=== PATIENT | female | born 1970 | race Caucasian/White ===

== ENCOUNTER 2021-05-05 20:53 | Inpatient (IN) ==
[2021-05-05 22:08] LABS: Basophils # 0.1 K/mcL (0.0-0.2); Basophils % 1.3 %; Eosinophils # 0.9 K/mcL (0.0-0.6); Eosinophils % 11.5 %; Hematocrit 38.9 % (35.3-44.9); Hemoglobin 12.9 g/dL (11.5-15.4); Immature Granulocytes % 0.5 % (0-4); Lymphocytes # 3.2 K/mcL (0.6-4.6); Lymphocytes % 41.3 %; Mean Corpuscular HGB Conc 33.2 g/dL (31.6-35.5); Mean Corpuscular Hemoglobin 29.1 pg (28.0-33.3); Mean Corpuscular Volume 87.6 fL (83.0-100.0); Mean Platelet Volume 10.9 fL (9.4-12.4); Monocytes # 0.5 K/mcL (0.0-1.3); Monocytes % 6.9 %; Neutrophils # 2.9 K/mcL (1.6-8.9); Nucleated Red Blood Cells 0.4 /100 WBC (0); Platelet Count 229 K/mcL (140-400); Red Blood Count 4.44 M/mcL (3.82-4.97); Red Cell Distribution Width 12.7 % (11.5-14.5); Segmented Neutrophils % 38.5 %; White Blood Count 7.6 K/mcL (4.3-11.1)
[2021-05-05 22:28] LABS: Acetaminophen < 10 mcg/mL (10-20); Ethanol < 10 mg/dL (Less than 10); Salicylate < 2.5 mg/dL (15.0-30.0)
[2021-05-05 22:35] LABS: Bilirubin,Urine Negative (Negative); Blood,Urine Negative (Negative); Clarity,Urine Clear (Clear); Color,Urine Light-Yellow (Yellow); Glucose,Urine (UA) Normal (Normal); Ketones,Urine Negative (Negative); Leukocyte Esterase,Urine Negative (Negative); Nitrite,Urine Negative (Negative); Protein,Urine Trace mg/dL (Neg-Trace); Specific Gravity,Urine 1.022 (1.010-1.025); Urobilinogen,Urine Normal (Normal)
[2021-05-05 23:08] LABS: Amphetamine Screen,Urine Negative ng/mL (Cutoff=1000); Barbiturate Screen,Urine Negative ng/mL (Cutoff=200); Benzodiazepines Screen,Urine Negative ng/mL (Cutoff=200); Cannabinoid Screen,Urine Negative ng/mL (Cutoff = 50); Cocaine Screen,Urine Positive ng/mL (Cutoff= 300); Opiate Screen,Urine Negative ng/mL (Cutoff=300); Phencyclidine Screen,Urine Negative ng/mL (Cutoff=25)
[2021-05-05] MEDS: *HR* LORazepam 2 MG/ML VIAL IM PRN (23:10)
[2021-05-05] MEDS: Haloperidol Lactate 5 MG/ML VIAL IM PRN (23:10)
[2021-05-05 23:26] LABS: BUN/Creatinine Ratio 26 (6-26); Blood Urea Nitrogen 19 mg/dL (6-20); Calcium 8.9 mg/dL (8.6-10.3); Carbon Dioxide 27 mEq/L (23-29); Chloride 106 mEq/L (98-107); Glucose 90 mg/dL (70-105); Osmolality,Calculated 290 (280-300); Potassium 3.3 mEq/L (3.5-5.1); Sodium 139 mEq/L (136-145); eGFR For African Americans > 60 (> 60); eGFR For Non-African Americans > 60 (> 60)
[2021-05-06 06:58] LABS: Influenza A PCR Negative (Negative); Influenza B PCR Negative (Negative); Resp. Syncytial Virus PCR Negative (Negative); SARS-CoV-2 by PCR (In House) Negative (Negative)
[2021-05-06] MEDS ORDERED: *HR* LORazepam 2 MG/ML VIAL IM PRN (07:05)
[2021-05-06] MEDS ORDERED: hydrOXYzine pamoate 25 MG CAPSULE PO PRN (07:05)
[2021-05-06] MEDS: amLODIPine 5 MG TABLET PO SCH ×2 (12:29→12:36)
[2021-05-06] MEDS: risperiDONE 1 MG TABLET PO SCH ×2 (12:29→12:36)
[2021-05-06] MEDS ORDERED: Dental Box - Benzocaine 20% SWAB DT ONE (18:33)
[2021-05-06] MEDS: diazePAM 2 MG TABLET PO SCH (20:54)
[2021-05-06] MEDS: Gabapentin 100 MG CAPSULE PO SCH (20:54)
[2021-05-06] MEDS ORDERED: QUEtiapine Fumarate 100 MG TABLET PO SCH (21:00)
[2021-05-07] MEDS: diazePAM 2 MG TABLET PO SCH ×2 (09:01→20:12)
[2021-05-07] MEDS: Gabapentin 100 MG CAPSULE PO SCH ×3 (09:01→20:12)
[2021-05-07] MEDS: amLODIPine 5 MG TABLET PO SCH ×2 (09:01→09:15)
[2021-05-07] MEDS ORDERED: diazePAM 2 MG TABLET PO ONE (15:30)
[2021-05-07] MEDS: Ibuprofen 400 MG TABLET PO PRN (17:03)
[2021-05-07] MEDS ORDERED: QUEtiapine Fumarate 100 MG TABLET PO SCH (21:00)
[2021-05-08] MEDS: Gabapentin 100 MG CAPSULE PO SCH ×3 (08:47→20:14)
[2021-05-08] MEDS: amLODIPine 5 MG TABLET PO SCH (08:48)
[2021-05-08] MEDS: diazePAM 2 MG TABLET PO SCH ×2 (08:48→20:14)
[2021-05-08] MEDS: Ibuprofen 400 MG TABLET PO PRN ×2 (09:08→20:14)
[2021-05-08] MEDS: *HR* LORazepam 1 MG TABLET PO PRN (10:51)
[2021-05-08] MEDS: haloperidoL 5 MG TABLET PO PRN (10:51)
[2021-05-08] MEDS: Multivit/Ca/Min/Fe/FA 1 TAB TABLET PO SCH (14:54)
[2021-05-08] MEDS: QUEtiapine Fumarate 100 MG TABLET PO SCH (14:54)
[2021-05-08] MEDS: MOM Conc 10 ML UD.LIQ PO PRN (20:00)
[2021-05-08] MEDS ORDERED: QUEtiapine Fumarate 300 MG TABLET PO SCH (21:00)
[2021-05-09] MEDS: QUEtiapine Fumarate 25 MG TABLET PO PRN (01:58)
[2021-05-09] MEDS: Ibuprofen 400 MG TABLET PO PRN (01:58)
[2021-05-09] MEDS: Multivit/Ca/Min/Fe/FA 1 TAB TABLET PO SCH (08:58)
[2021-05-09] MEDS: diazePAM 2 MG TABLET PO SCH ×2 (09:00→20:44)
[2021-05-09] MEDS: Gabapentin 100 MG CAPSULE PO SCH ×3 (09:03→20:44)
[2021-05-09] MEDS: amLODIPine 5 MG TABLET PO SCH (09:08)
[2021-05-09] MEDS: QUEtiapine Fumarate 100 MG TABLET PO SCH ×2 (09:09→12:36)
[2021-05-09] MEDS: *HR* LORazepam 2 MG/ML VIAL IM PRN (09:47)
[2021-05-09] MEDS: Haloperidol Lactate 5 MG/ML VIAL IM PRN (09:50)
[2021-05-09] MEDS: *HR* LORazepam 1 MG TABLET PO PRN (15:52)
[2021-05-09] MEDS: MOM Conc 10 ML UD.LIQ PO PRN (20:54)
[2021-05-09] MEDS ORDERED: QUEtiapine Fumarate 100 MG TABLET PO SCH (21:00)
[2021-05-10] MEDS: diazePAM 2 MG TABLET PO SCH ×2 (09:12→20:46)
[2021-05-10] MEDS: amLODIPine 5 MG TABLET PO SCH (09:12)
[2021-05-10] MEDS: QUEtiapine Fumarate 100 MG TABLET PO SCH (09:13)
[2021-05-10] MEDS: haloperidoL 5 MG TABLET PO PRN (09:25)
[2021-05-10] MEDS: *HR* LORazepam 1 MG TABLET PO PRN (09:26)
[2021-05-10] MEDS: Gabapentin 100 MG CAPSULE PO SCH ×3 (09:28→20:47)
[2021-05-10] MEDS: Multivit/Ca/Min/Fe/FA 1 TAB TABLET PO SCH (09:28)
[2021-05-10] MEDS: Haloperidol Lactate 5 MG/ML VIAL IM PRN (12:55)
[2021-05-10] MEDS: *HR* LORazepam 2 MG/ML VIAL IM PRN (12:55)
[2021-05-10] MEDS: Ibuprofen 400 MG TABLET PO PRN (20:47)
[2021-05-10] MEDS: QUEtiapine Fumarate 300 MG TABLET PO SCH (20:47)
[2021-05-11] MEDS: Multivit/Ca/Min/Fe/FA 1 TAB TABLET PO SCH (10:05)
[2021-05-11] MEDS: Gabapentin 100 MG CAPSULE PO SCH ×3 (10:05→20:15)
[2021-05-11] MEDS: QUEtiapine Fumarate 100 MG TABLET PO SCH (10:06)
[2021-05-11] MEDS: amLODIPine 5 MG TABLET PO SCH (10:06)
[2021-05-11] MEDS: diazePAM 2 MG TABLET PO SCH ×2 (10:20→20:15)
[2021-05-11] MEDS: MOM Conc 10 ML UD.LIQ PO PRN (17:03)
[2021-05-11] MEDS: Haloperidol Lactate 5 MG/ML VIAL IM PRN (17:42)
[2021-05-11] MEDS: *HR* LORazepam 2 MG/ML VIAL IM PRN (17:43)
[2021-05-11] MEDS: QUEtiapine Fumarate 300 MG TABLET PO SCH (20:15)
[2021-05-12] MEDS: diazePAM 2 MG TABLET PO SCH ×2 (09:16→21:07)
[2021-05-12] MEDS: Gabapentin 100 MG CAPSULE PO SCH ×3 (09:16→21:07)
[2021-05-12] MEDS: Multivit/Ca/Min/Fe/FA 1 TAB TABLET PO SCH (09:16)
[2021-05-12] MEDS: amLODIPine 5 MG TABLET PO SCH (09:16)
[2021-05-12] MEDS: QUEtiapine Fumarate 100 MG TABLET PO SCH ×2 (09:22→10:12)
[2021-05-12 11:16] LABS: Basophils # 0.1 K/mcL (0.0-0.2); Basophils % 0.9 %; Eosinophils # 0.6 K/mcL (0.0-0.6); Eosinophils % 10.6 %; Hematocrit 38.5 % (35.3-44.9); Hemoglobin 12.8 g/dL (11.5-15.4); Immature Granulocytes % 0.4 % (0-4); Lymphocytes # 1.2 K/mcL (0.6-4.6); Lymphocytes % 22.3 %; Mean Corpuscular HGB Conc 33.2 g/dL (31.6-35.5); Mean Corpuscular Hemoglobin 29.7 pg (28.0-33.3); Mean Corpuscular Volume 89.3 fL (83.0-100.0); Mean Platelet Volume 10.5 fL (9.4-12.4); Monocytes # 0.3 K/mcL (0.0-1.3); Monocytes % 5.7 %; Neutrophils # 3.3 K/mcL (1.6-8.9); Platelet Count 183 K/mcL (140-400); Red Blood Count 4.31 M/mcL (3.82-4.97); Red Cell Distribution Width 12.5 % (11.5-14.5); Segmented Neutrophils % 60.1 %; White Blood Count 5.5 K/mcL (4.3-11.1)
[2021-05-12 11:23] LABS: Estimated Average Glucose 108 mg/dl; Hemoglobin A1C 5.4 %
[2021-05-12 11:37] LABS: Alanine Aminotransferase 51 Units/L (7-52); Albumin 3.9 g/dL (3.5-5.7); Albumin/Globulin Ratio 2.1 (1.1-2.2); Alkaline Phosphatase 58 Units/L (34-104); Aspartate Amino Transferase 38 Units/L (13-39); BUN/Creatinine Ratio 30 (6-26); Bilirubin,Total 0.3 mg/dL (0.3-1.0); Blood Urea Nitrogen 22 mg/dL (6-20); Calcium 8.9 mg/dL (8.6-10.3); Carbon Dioxide 26 mEq/L (23-29); Chloride 106 mEq/L (98-107); Globulin 1.9 g/dL (2.4-3.5); Glucose 124 mg/dL (70-105); Osmolality,Calculated 289 (280-300); Potassium 3.7 mEq/L (3.5-5.1); Sodium 137 mEq/L (136-145); Total Protein 5.8 g/dL (6.4-8.9); eGFR For African Americans > 60 (> 60); eGFR For Non-African Americans > 60 (> 60)
[2021-05-12 11:49] LABS: Thyroid Stimulating Hormone 1.591 mcIU/mL (0.340-5.600)
[2021-05-12] MEDS: Ibuprofen 400 MG TABLET PO PRN (12:59)
[2021-05-12] MEDS: haloperidoL 5 MG TABLET PO PRN (13:07)
[2021-05-12] MEDS: *HR* LORazepam 1 MG TABLET PO PRN (13:07)
[2021-05-12] MEDS: Haloperidol Lactate 5 MG/ML VIAL IM PRN (15:53)
[2021-05-12] MEDS: *HR* LORazepam 2 MG/ML VIAL IM PRN (15:55)
[2021-05-12] MEDS: MOM Conc 10 ML UD.LIQ PO PRN (16:10)
[2021-05-12] MEDS: Divalproex (24 HR) 500 MG TABLET PO SCH ×2 (21:07→22:07)
[2021-05-12] MEDS: QUEtiapine Fumarate 300 MG TABLET PO SCH (21:07)
[2021-05-13] MEDS: Ibuprofen 400 MG TABLET PO PRN (08:45)
[2021-05-13] MEDS: amLODIPine 5 MG TABLET PO SCH (08:46)
[2021-05-13] MEDS: Gabapentin 100 MG CAPSULE PO SCH ×3 (08:46→20:27)
[2021-05-13] MEDS: Multivit/Ca/Min/Fe/FA 1 TAB TABLET PO SCH (08:46)
[2021-05-13] MEDS: diazePAM 2 MG TABLET PO SCH ×2 (08:47→20:27)
[2021-05-13] MEDS: Haloperidol Lactate 5 MG/ML VIAL IM PRN (10:35)
[2021-05-13] MEDS: *HR* LORazepam 2 MG/ML VIAL IM PRN (10:38)
[2021-05-13] MEDS: QUEtiapine Fumarate 100 MG TABLET PO SCH (15:07)
[2021-05-13] MEDS: haloperidoL 5 MG TABLET PO PRN (16:46)
[2021-05-13] MEDS: *HR* LORazepam 1 MG TABLET PO PRN (16:49)
[2021-05-13] MEDS: MOM Conc 10 ML UD.LIQ PO PRN (20:26)
[2021-05-13] MEDS: QUEtiapine Fumarate 300 MG TABLET PO SCH (20:27)
[2021-05-13] MEDS: Divalproex (24 HR) 500 MG TABLET PO SCH (20:31)
[2021-05-14] MEDS: Ibuprofen 400 MG TABLET PO PRN ×2 (07:05→18:50)
[2021-05-14] MEDS: Multivit/Ca/Min/Fe/FA 1 TAB TABLET PO SCH (09:12)
[2021-05-14] MEDS: Gabapentin 100 MG CAPSULE PO SCH ×3 (09:12→20:21)
[2021-05-14] MEDS: amLODIPine 5 MG TABLET PO SCH (09:12)
[2021-05-14] MEDS: diazePAM 2 MG TABLET PO SCH ×2 (09:13→16:32)
[2021-05-14] MEDS: QUEtiapine Fumarate 100 MG TABLET PO SCH ×2 (09:18→12:36)
[2021-05-14] MEDS: Divalproex (24 HR) 500 MG TABLET PO SCH (20:21)
[2021-05-14] MEDS: QUEtiapine Fumarate 300 MG TABLET PO SCH (20:21)
[2021-05-14] MEDS ORDERED: Nicotine 7 MG PATCH.TD24 TD SCH (20:30)
[2021-05-14] MEDS: Nicotine 2 MG GUM BC PRN (20:38)
[2021-05-15] MEDS: QUEtiapine Fumarate 100 MG TABLET PO SCH ×2 (08:54→10:00)
[2021-05-15] MEDS: Gabapentin 100 MG CAPSULE PO SCH ×3 (08:55→21:58)
[2021-05-15] MEDS: Multivit/Ca/Min/Fe/FA 1 TAB TABLET PO SCH (08:55)
[2021-05-15] MEDS: diazePAM 2 MG TABLET PO SCH ×2 (08:56→14:42)
[2021-05-15] MEDS: Nicotine 14 MG PATCH.TD24 TD SCH ×2 (08:57→09:26)
[2021-05-15] MEDS: Nicotine 2 MG GUM BC PRN ×2 (09:24→22:26)
[2021-05-15] MEDS: haloperidoL 5 MG TABLET PO PRN (13:31)
[2021-05-15] MEDS: *HR* LORazepam 1 MG TABLET PO PRN ×2 (13:31→19:40)
[2021-05-15] MEDS: MOM Conc 10 ML UD.LIQ PO PRN (17:44)
[2021-05-15] MEDS: Ibuprofen 400 MG TABLET PO PRN (17:44)
[2021-05-15] MEDS: QUEtiapine Fumarate 300 MG TABLET PO SCH (22:00)
[2021-05-15] MEDS: Divalproex (24 HR) 500 MG TABLET PO SCH (22:03)
[2021-05-16] MEDS: Ibuprofen 400 MG TABLET PO PRN (05:48)
[2021-05-16] MEDS: QUEtiapine Fumarate 100 MG TABLET PO SCH ×3 (08:47→14:07)
[2021-05-16] MEDS: Multivit/Ca/Min/Fe/FA 1 TAB TABLET PO SCH (08:49)
[2021-05-16] MEDS: Gabapentin 100 MG CAPSULE PO SCH ×3 (08:49→21:57)
[2021-05-16] MEDS: diazePAM 2 MG TABLET PO SCH ×2 (08:50→14:08)
[2021-05-16] MEDS: Nicotine 2 MG GUM BC PRN (08:50)
[2021-05-16] MEDS: Nicotine 14 MG PATCH.TD24 TD SCH (09:21)
[2021-05-16] MEDS: Haloperidol Lactate 5 MG/ML VIAL IM PRN (11:46)
[2021-05-16] MEDS: *HR* LORazepam 2 MG/ML VIAL IM PRN (11:47)
[2021-05-16] MEDS ORDERED: ChlorproMAZINE 25 MG/ML AMPUL IM PRN (14:04)
[2021-05-16] MEDS: MOM Conc 10 ML UD.LIQ PO PRN (17:54)
[2021-05-16] MEDS: QUEtiapine Fumarate 300 MG TABLET PO SCH ×2 (21:57→22:55)
[2021-05-16] MEDS: Divalproex (24 HR) 500 MG TABLET PO SCH ×2 (21:57→22:51)
[2021-05-17] MEDS: diazePAM 2 MG TABLET PO SCH ×2 (09:01→14:33)
[2021-05-17] MEDS: Multivit/Ca/Min/Fe/FA 1 TAB TABLET PO SCH (09:02)
[2021-05-17] MEDS: Gabapentin 100 MG CAPSULE PO SCH ×3 (09:02→19:45)
[2021-05-17] MEDS: Nicotine 14 MG PATCH.TD24 TD SCH (09:04)
[2021-05-17] MEDS: QUEtiapine Fumarate 100 MG TABLET PO SCH ×2 (09:04→14:32)
[2021-05-17] MEDS: Mag Hydrox/Al Hydrox/Simeth 30 ML UDC PO PRN (09:32)
[2021-05-17] MEDS ORDERED: QUEtiapine Fumarate 100 MG TABLET PO SCH (14:00)
[2021-05-17] MEDS: Ibuprofen 400 MG TABLET PO PRN (14:43)
[2021-05-17] MEDS: MOM Conc 10 ML UD.LIQ PO PRN (15:43)
[2021-05-17] MEDS: chlorproMAZINE 25 MG TABLET PO PRN (19:45)
[2021-05-17] MEDS: QUEtiapine Fumarate 300 MG TABLET PO SCH (19:45)
[2021-05-17] MEDS: Divalproex (24 HR) 500 MG TABLET PO SCH (21:03)
[2021-05-18] MEDS: diazePAM 2 MG TABLET PO SCH (08:06)
[2021-05-18] MEDS: Gabapentin 100 MG CAPSULE PO SCH ×3 (08:07→20:15)
[2021-05-18] MEDS: Multivit/Ca/Min/Fe/FA 1 TAB TABLET PO SCH (08:07)
[2021-05-18] MEDS: QUEtiapine Fumarate 100 MG TABLET PO SCH ×2 (08:10→08:49)
[2021-05-18] MEDS: Nicotine 14 MG PATCH.TD24 TD SCH (08:11)
[2021-05-18] MEDS: Mag Hydrox/Al Hydrox/Simeth 30 ML UDC PO PRN (08:24)
[2021-05-18] MEDS ORDERED: ChlorproMAZINE 25 MG/ML AMPUL IM PRN (10:35)
[2021-05-18] MEDS: chlorproMAZINE 25 MG TABLET PO PRN (13:36)
[2021-05-18] MEDS: Ibuprofen 400 MG TABLET PO PRN (13:38)
[2021-05-18] MEDS: clonazePAM 1 MG TABLET PO SCH (15:10)
[2021-05-18] MEDS: *HR* LORazepam 2 MG/ML VIAL IM PRN (18:22)
[2021-05-18] MEDS: ChlorproMAZINE 25 MG/ML AMPUL IM PRN (18:25)
[2021-05-18] MEDS: Divalproex (24 HR) 500 MG TABLET PO SCH (20:15)
[2021-05-18] MEDS: QUEtiapine Fumarate 300 MG TABLET PO SCH (20:15)
[2021-05-19] MEDS: Mag Hydrox/Al Hydrox/Simeth 30 ML UDC PO PRN (07:52)
[2021-05-19] MEDS: clonazePAM 1 MG TABLET PO SCH ×2 (08:27→14:21)
[2021-05-19] MEDS: Multivit/Ca/Min/Fe/FA 1 TAB TABLET PO SCH (08:28)
[2021-05-19] MEDS: Nicotine 14 MG PATCH.TD24 TD SCH (08:29)
[2021-05-19] MEDS: Gabapentin 100 MG CAPSULE PO SCH ×3 (08:29→21:23)
[2021-05-19] MEDS: QUEtiapine Fumarate 100 MG TABLET PO SCH (08:39)
[2021-05-19] MEDS: Ibuprofen 400 MG TABLET PO PRN (18:04)
[2021-05-19] MEDS: Divalproex (24 HR) 500 MG TABLET PO SCH (21:24)
[2021-05-19] MEDS: QUEtiapine Fumarate 300 MG TABLET PO SCH (22:11)
[2021-05-19] MEDS: MOM Conc 10 ML UD.LIQ PO PRN (22:38)
[2021-05-19] MEDS: QUEtiapine Fumarate 25 MG TABLET PO PRN (23:17)
[2021-05-20] MEDS ORDERED: Paliperidone Palmitate 234 MG/1.5 ML SYRINGE IM ONE (08:30)
[2021-05-20] MEDS: Ibuprofen 400 MG TABLET PO PRN ×2 (09:12→20:21)
[2021-05-20] MEDS: clonazePAM 1 MG TABLET PO SCH ×2 (09:13→14:08)
[2021-05-20] MEDS: Gabapentin 100 MG CAPSULE PO SCH (09:14)
[2021-05-20] MEDS: Nicotine 14 MG PATCH.TD24 TD SCH (09:16)
[2021-05-20] MEDS: Multivit/Ca/Min/Fe/FA 1 TAB TABLET PO SCH (09:18)
[2021-05-20] MEDS: QUEtiapine Fumarate 100 MG TABLET PO SCH ×3 (09:19→14:49)
[2021-05-20] MEDS: MOM Conc 10 ML UD.LIQ PO PRN (09:20)
[2021-05-20] MEDS: Gabapentin 300 MG CAPSULE PO SCH ×2 (14:07→20:21)
[2021-05-20] MEDS: ChlorproMAZINE 25 MG/ML AMPUL IM PRN (17:54)
[2021-05-20] MEDS: *HR* LORazepam 2 MG/ML VIAL IM PRN (17:54)
[2021-05-20] MEDS: QUEtiapine Fumarate 300 MG TABLET PO SCH (20:21)
[2021-05-20] MEDS: Divalproex (24 HR) 500 MG TABLET PO SCH (20:32)
[2021-05-21] MEDS: Nicotine 14 MG PATCH.TD24 TD SCH (09:48)
[2021-05-21] MEDS: Gabapentin 300 MG CAPSULE PO SCH ×3 (09:51→21:08)
[2021-05-21] MEDS: Multivit/Ca/Min/Fe/FA 1 TAB TABLET PO SCH (09:52)
[2021-05-21] MEDS: clonazePAM 1 MG TABLET PO SCH ×2 (09:52→14:31)
[2021-05-21] MEDS: MOM Conc 10 ML UD.LIQ PO PRN (09:56)
[2021-05-21] MEDS: Ibuprofen 400 MG TABLET PO PRN (09:56)
[2021-05-21] MEDS ORDERED: polyethylene glycoL 3350 17 GM POWD.PACK PO PRN (10:24)
[2021-05-21] MEDS: QUEtiapine Fumarate 100 MG TABLET PO SCH (14:31)
[2021-05-21] MEDS: QUEtiapine Fumarate 300 MG TABLET PO SCH (21:08)
[2021-05-21] MEDS: Divalproex (24 HR) 500 MG TABLET PO SCH (21:12)
[2021-05-22] MEDS: Ibuprofen 400 MG TABLET PO PRN ×2 (06:35→15:00)
[2021-05-22] MEDS: Nicotine 14 MG PATCH.TD24 TD SCH (08:18)
[2021-05-22] MEDS: clonazePAM 1 MG TABLET PO SCH ×2 (08:19→14:57)
[2021-05-22] MEDS: Gabapentin 300 MG CAPSULE PO SCH ×3 (08:19→20:45)
[2021-05-22] MEDS: Multivit/Ca/Min/Fe/FA 1 TAB TABLET PO SCH (08:19)
[2021-05-22] MEDS: MOM Conc 10 ML UD.LIQ PO PRN (09:47)
[2021-05-22] MEDS: OXcarbazepine 150 MG TABLET PO SCH ×2 (11:06→20:45)
[2021-05-22] MEDS: QUEtiapine Fumarate 100 MG TABLET PO SCH (13:20)
[2021-05-22] MEDS ORDERED: *HR* LORazepam 2 MG/ML VIAL IM ONE (16:14)
[2021-05-22] MEDS: ChlorproMAZINE 25 MG/ML AMPUL IM PRN (16:36)
[2021-05-22] MEDS: QUEtiapine Fumarate 300 MG TABLET PO SCH (20:45)
[2021-05-23] MEDS: clonazePAM 1 MG TABLET PO SCH ×2 (08:33→14:41)
[2021-05-23] MEDS: Gabapentin 300 MG CAPSULE PO SCH ×3 (08:33→20:15)
[2021-05-23] MEDS: OXcarbazepine 150 MG TABLET PO SCH ×2 (08:34→20:25)
[2021-05-23] MEDS: Multivit/Ca/Min/Fe/FA 1 TAB TABLET PO SCH (08:34)
[2021-05-23] MEDS: Nicotine 14 MG PATCH.TD24 TD SCH (08:35)
[2021-05-23] MEDS: QUEtiapine Fumarate 100 MG TABLET PO SCH ×2 (14:40→15:07)
[2021-05-23] MEDS: *HR* LORazepam 2 MG/ML VIAL IM PRN (15:03)
[2021-05-23] MEDS: ChlorproMAZINE 25 MG/ML AMPUL IM PRN ×2 (15:03→20:40)
[2021-05-23] MEDS: Sennosides 8.6 MG TABLET PO SCH ×2 (16:28→20:14)
[2021-05-23 17:54] LABS: Alanine Aminotransferase 76 Units/L (7-52); Albumin 4.1 g/dL (3.5-5.7); Albumin/Globulin Ratio 2.2 (1.1-2.2); Alkaline Phosphatase 68 Units/L (34-104); Aspartate Amino Transferase 60 Units/L (13-39); BUN/Creatinine Ratio 25 (6-26); Bilirubin,Direct 0.1 mg/dL (0.0-0.2); Bilirubin,Indirect 0.1 mg/dL (0.0-1.0); Bilirubin,Total 0.2 mg/dL (0.3-1.0); Blood Urea Nitrogen 19 mg/dL (6-20); Carbon Dioxide 21 mEq/L (23-29); Chloride 103 mEq/L (98-107); Globulin 1.9 g/dL (2.4-3.5); Glucose 105 mg/dL (70-105); Osmolality,Calculated 285 (280-300); Sodium 136 mEq/L (136-145); eGFR For African Americans > 60 (> 60); eGFR For Non-African Americans > 60 (> 60)
[2021-05-23] MEDS: Ibuprofen 400 MG TABLET PO PRN (20:59)
[2021-05-23] MEDS: QUEtiapine Fumarate 300 MG TABLET PO SCH (21:00)
[2021-05-24] MEDS ORDERED: Lactulose Oral Soln 20 GM/30 ML UDC PO ONE (07:31)
[2021-05-24] MEDS: Nicotine 14 MG PATCH.TD24 TD SCH (08:00)
[2021-05-24] MEDS: polyethylene glycoL 3350 17 GM POWD.PACK PO SCH (08:01)
[2021-05-24] MEDS: Gabapentin 300 MG CAPSULE PO SCH ×3 (08:01→21:08)
[2021-05-24] MEDS: OXcarbazepine 150 MG TABLET PO SCH ×2 (08:01→21:08)
[2021-05-24] MEDS: Multivit/Ca/Min/Fe/FA 1 TAB TABLET PO SCH (08:02)
[2021-05-24] MEDS: Sennosides 8.6 MG TABLET PO SCH ×2 (08:02→21:08)
[2021-05-24] MEDS: Ibuprofen 400 MG TABLET PO PRN (08:11)
[2021-05-24] MEDS ORDERED: clonazePAM 0.5 MG TABLET PO SCH (09:00)
[2021-05-24] MEDS ORDERED: Paliperidone Palmitate 156 MG/ML SYRINGE IM SCH (10:15)
[2021-05-24] MEDS ORDERED: clonazePAM 0.5 MG TABLET PO ONE (13:05)
[2021-05-24] MEDS: QUEtiapine Fumarate 100 MG TABLET PO SCH (13:43)
[2021-05-24] MEDS: clonazePAM 1 MG TABLET PO SCH (15:20)
[2021-05-24] MEDS: QUEtiapine Fumarate 300 MG TABLET PO SCH (21:08)
[2021-05-24] MEDS: QUEtiapine Fumarate 25 MG TABLET PO PRN (22:15)
[2021-05-24] MEDS: chlorproMAZINE 25 MG TABLET PO PRN (23:18)
[2021-05-25] MEDS: Ibuprofen 400 MG TABLET PO PRN ×2 (05:37→18:06)
[2021-05-25] MEDS: OXcarbazepine 150 MG TABLET PO SCH ×2 (09:49→20:05)
[2021-05-25] MEDS: Gabapentin 300 MG CAPSULE PO SCH ×3 (09:50→20:06)
[2021-05-25] MEDS: clonazePAM 1 MG TABLET PO SCH ×2 (09:50→14:33)
[2021-05-25] MEDS: Multivit/Ca/Min/Fe/FA 1 TAB TABLET PO SCH (09:51)
[2021-05-25] MEDS: Nicotine 14 MG PATCH.TD24 TD SCH (09:51)
[2021-05-25] MEDS: polyethylene glycoL 3350 17 GM POWD.PACK PO SCH (09:51)
[2021-05-25] MEDS: chlorproMAZINE 25 MG TABLET PO PRN (12:37)
[2021-05-25] MEDS: Mag Hydrox/Al Hydrox/Simeth 30 ML UDC PO PRN (14:32)
[2021-05-25] MEDS: QUEtiapine Fumarate 100 MG TABLET PO SCH (14:32)
[2021-05-25] MEDS: ChlorproMAZINE 25 MG/ML AMPUL IM PRN (14:44)
[2021-05-25] MEDS: QUEtiapine Fumarate 300 MG TABLET PO SCH (20:05)
[2021-05-26] MEDS: Ibuprofen 400 MG TABLET PO PRN ×2 (04:26→13:33)
[2021-05-26] MEDS: OXcarbazepine 150 MG TABLET PO SCH ×2 (08:27→20:46)
[2021-05-26] MEDS: Gabapentin 300 MG CAPSULE PO SCH ×3 (08:28→20:45)
[2021-05-26] MEDS: Nicotine 14 MG PATCH.TD24 TD SCH (08:28)
[2021-05-26] MEDS: clonazePAM 1 MG TABLET PO SCH ×2 (08:28→15:57)
[2021-05-26] MEDS: Multivit/Ca/Min/Fe/FA 1 TAB TABLET PO SCH (08:28)
[2021-05-26] MEDS: polyethylene glycoL 3350 17 GM POWD.PACK PO SCH (08:29)
[2021-05-26] MEDS ORDERED: Morphine Sulfate Oral CONC 10 MG/0.5 ML ORAL.SYG SL ONE (13:27)
[2021-05-26] MEDS: QUEtiapine Fumarate 100 MG TABLET PO SCH (13:30)
[2021-05-26] MEDS: Sennosides/Docusate Sodium TABLET PO SCH ×2 (13:30→20:45)
[2021-05-26] MEDS: Lactulose Oral Soln 20 GM/30 ML UDC PO SCH ×2 (14:39→20:46)
[2021-05-26] MEDS: QUEtiapine Fumarate 300 MG TABLET PO SCH (20:45)
[2021-05-26] MEDS: amLODIPine 5 MG TABLET PO SCH (21:23)
[2021-05-27] MEDS: polyethylene glycoL 3350 17 GM POWD.PACK PO SCH (08:04)
[2021-05-27] MEDS: Nicotine 14 MG PATCH.TD24 TD SCH (08:04)
[2021-05-27] MEDS: Lactulose Oral Soln 20 GM/30 ML UDC PO SCH ×2 (08:04→20:00)
[2021-05-27] MEDS: Sennosides/Docusate Sodium TABLET PO SCH ×2 (08:05→20:00)
[2021-05-27] MEDS: OXcarbazepine 150 MG TABLET PO SCH ×4 (08:05→20:00)
[2021-05-27] MEDS: Metoprolol XL (24 HR) Succ 25 MG TAB.ER.24H PO SCH (08:05)
[2021-05-27] MEDS: Multivit/Ca/Min/Fe/FA 1 TAB TABLET PO SCH (08:06)
[2021-05-27] MEDS: clonazePAM 1 MG TABLET PO SCH ×2 (08:19→14:33)
[2021-05-27] MEDS: Gabapentin 300 MG CAPSULE PO SCH ×3 (08:20→20:00)
[2021-05-27] MEDS: Ibuprofen 400 MG TABLET PO PRN ×2 (11:48→20:01)
[2021-05-27] MEDS: hydrOXYzine pamoate 25 MG CAPSULE PO PRN ×2 (12:01→19:59)
[2021-05-27 12:25] LABS: Basophils % 0.6 %; Eosinophils # 0.5 K/mcL (0.0-0.6); Eosinophils % 9.1 %; Hematocrit 37.4 % (35.3-44.9); Hemoglobin 12.4 g/dL (11.5-15.4); Immature Granulocytes % 0.4 % (0-4); Lymphocytes # 1.2 K/mcL (0.6-4.6); Mean Corpuscular HGB Conc 33.2 g/dL (31.6-35.5); Mean Corpuscular Hemoglobin 29.5 pg (28.0-33.3); Mean Platelet Volume 10.5 fL (9.4-12.4); Monocytes # 0.5 K/mcL (0.0-1.3); Monocytes % 9.9 %; Neutrophils # 3.1 K/mcL (1.6-8.9); Platelet Count 204 K/mcL (140-400); Red Cell Distribution Width 12.9 % (11.5-14.5); White Blood Count 5.4 K/mcL (4.3-11.1)
[2021-05-27 12:43] LABS: BUN/Creatinine Ratio 15 (6-26); Blood Urea Nitrogen 11 mg/dL (6-20); Carbon Dioxide 27 mEq/L (23-29); Chloride 98 mEq/L (98-107); Glucose 84 mg/dL (70-105); Magnesium 1.8 mg/dL (1.6-2.6); Osmolality,Calculated 273 (280-300); Potassium 3.9 mEq/L (3.5-5.1); Sodium 132 mEq/L (136-145); eGFR For African Americans > 60 (> 60); eGFR For Non-African Americans > 60 (> 60)
[2021-05-27] MEDS: ChlorproMAZINE 25 MG/ML AMPUL IM PRN (12:48)
[2021-05-27] MEDS: QUEtiapine Fumarate 300 MG TABLET PO SCH ×2 (15:58→21:20)
[2021-05-27] MEDS: amLODIPine 5 MG TABLET PO SCH (21:46)
[2021-05-28] MEDS: Ibuprofen 400 MG TABLET PO PRN ×3 (03:31→21:58)
[2021-05-28] MEDS: ChlorproMAZINE 25 MG/ML AMPUL IM PRN ×2 (03:55→14:06)
[2021-05-28] MEDS: polyethylene glycoL 3350 17 GM POWD.PACK PO SCH (08:39)
[2021-05-28] MEDS: Lactulose Oral Soln 20 GM/30 ML UDC PO SCH ×3 (08:40→22:41)
[2021-05-28] MEDS: Nicotine 14 MG PATCH.TD24 TD SCH (08:40)
[2021-05-28] MEDS: Sennosides/Docusate Sodium TABLET PO SCH ×2 (08:40→21:40)
[2021-05-28] MEDS: Multivit/Ca/Min/Fe/FA 1 TAB TABLET PO SCH (08:40)
[2021-05-28] MEDS: Metoprolol XL (24 HR) Succ 25 MG TAB.ER.24H PO SCH (08:41)
[2021-05-28] MEDS: OXcarbazepine 150 MG TABLET PO SCH ×3 (08:41→21:46)
[2021-05-28] MEDS: Gabapentin 300 MG CAPSULE PO SCH ×3 (08:41→21:40)
[2021-05-28] MEDS: clonazePAM 1 MG TABLET PO SCH ×2 (08:41→13:59)
[2021-05-28] MEDS: hydrOXYzine pamoate 25 MG CAPSULE PO PRN (10:24)
[2021-05-28 12:15] LABS: Basophils # 0.1 K/mcL (0.0-0.2); Basophils % 1.1 %; Eosinophils # 0.5 K/mcL (0.0-0.6); Eosinophils % 11.6 %; Hematocrit 35.7 % (35.3-44.9); Hemoglobin 11.8 g/dL (11.5-15.4); Immature Granulocytes % 0.4 % (0-4); Lymphocytes # 1.2 K/mcL (0.6-4.6); Lymphocytes % 25.9 %; Mean Corpuscular HGB Conc 33.1 g/dL (31.6-35.5); Mean Corpuscular Hemoglobin 29.1 pg (28.0-33.3); Mean Corpuscular Volume 87.9 fL (83.0-100.0); Mean Platelet Volume 10.3 fL (9.4-12.4); Monocytes # 0.5 K/mcL (0.0-1.3); Monocytes % 11.4 %; Neutrophils # 2.3 K/mcL (1.6-8.9); Platelet Count 196 K/mcL (140-400); Red Blood Count 4.06 M/mcL (3.82-4.97); Red Cell Distribution Width 12.8 % (11.5-14.5); Segmented Neutrophils % 49.6 %; White Blood Count 4.6 K/mcL (4.3-11.1)
[2021-05-28 12:35] LABS: Alanine Aminotransferase 71 Units/L (7-52); Albumin/Globulin Ratio 1.6 (1.1-2.2); Aspartate Amino Transferase 55 Units/L (13-39); BUN/Creatinine Ratio 19 (6-26); Bilirubin,Total 0.3 mg/dL (0.3-1.0); Blood Urea Nitrogen 13 mg/dL (6-20); Carbon Dioxide 26 mEq/L (23-29); Chloride 95 mEq/L (98-107); Globulin 2.5 g/dL (2.4-3.5); Glucose 91 mg/dL (70-105); Magnesium 1.7 mg/dL (1.6-2.6); Osmolality,Calculated 266 (280-300); Potassium 4.3 mEq/L (3.5-5.1); Sodium 128 mEq/L (136-145); Total Protein 6.5 g/dL (6.4-8.9); eGFR For African Americans > 60 (> 60); eGFR For Non-African Americans > 60 (> 60)
[2021-05-28 13:57] LABS: Alkaline Phosphatase 74 Units/L (34-104)
[2021-05-28] MEDS: QUEtiapine Fumarate 300 MG TABLET PO SCH ×2 (13:59→21:40)
[2021-05-28] MEDS: amLODIPine 5 MG TABLET PO SCH (21:40)
[2021-05-28] MEDS: chlorproMAZINE 25 MG TABLET PO PRN (21:50)
[2021-05-29] MEDS: Ibuprofen 400 MG TABLET PO PRN ×3 (05:16→23:02)
[2021-05-29] MEDS: clonazePAM 1 MG TABLET PO SCH ×2 (08:09→14:46)
[2021-05-29] MEDS: polyethylene glycoL 3350 17 GM POWD.PACK PO SCH (08:09)
[2021-05-29] MEDS: Gabapentin 300 MG CAPSULE PO SCH ×3 (08:09→20:30)
[2021-05-29] MEDS: Nicotine 14 MG PATCH.TD24 TD SCH (08:09)
[2021-05-29] MEDS: Multivit/Ca/Min/Fe/FA 1 TAB TABLET PO SCH (08:09)
[2021-05-29] MEDS: Metoprolol XL (24 HR) Succ 25 MG TAB.ER.24H PO SCH (08:14)
[2021-05-29] MEDS: OXcarbazepine 150 MG TABLET PO SCH ×3 (08:15→21:34)
[2021-05-29] MEDS: ChlorproMAZINE 25 MG/ML AMPUL IM PRN ×2 (08:35→12:54)
[2021-05-29] MEDS: hydrOXYzine pamoate 25 MG CAPSULE PO PRN ×3 (11:31→23:04)
[2021-05-29 11:50] LABS: BUN/Creatinine Ratio 18 (6-26); Blood Urea Nitrogen 13 mg/dL (6-20); Calcium 9.3 mg/dL (8.6-10.3); Carbon Dioxide 27 mEq/L (23-29); Chloride 96 mEq/L (98-107); Glucose 73 mg/dL (70-105); Osmolality,Calculated 269 (280-300); Potassium 4.4 mEq/L (3.5-5.1); Sodium 130 mEq/L (136-145); eGFR For African Americans > 60 (> 60); eGFR For Non-African Americans > 60 (> 60)
[2021-05-29] MEDS: QUEtiapine Fumarate 300 MG TABLET PO SCH ×2 (14:46→20:30)
[2021-05-29] MEDS: amLODIPine 5 MG TABLET PO SCH (21:34)
[2021-05-30] MEDS: Ibuprofen 400 MG TABLET PO PRN ×2 (08:17→21:00)
[2021-05-30] MEDS: hydrOXYzine pamoate 25 MG CAPSULE PO PRN ×3 (08:17→20:59)
[2021-05-30] MEDS: clonazePAM 1 MG TABLET PO SCH ×2 (08:17→14:24)
[2021-05-30] MEDS: Multivit/Ca/Min/Fe/FA 1 TAB TABLET PO SCH (08:17)
[2021-05-30] MEDS: Metoprolol XL (24 HR) Succ 25 MG TAB.ER.24H PO SCH (08:17)
[2021-05-30] MEDS: Gabapentin 300 MG CAPSULE PO SCH ×3 (08:17→20:59)
[2021-05-30] MEDS: polyethylene glycoL 3350 17 GM POWD.PACK PO SCH (08:18)
[2021-05-30] MEDS: Nicotine 14 MG PATCH.TD24 TD SCH (08:18)
[2021-05-30] MEDS: OXcarbazepine 150 MG TABLET PO SCH ×3 (08:23→21:01)
[2021-05-30] MEDS ORDERED: haloperidoL 5 MG TABLET PO PRN (11:18)
[2021-05-30] MEDS: QUEtiapine Fumarate 300 MG TABLET PO SCH ×2 (14:24→20:59)
[2021-05-30 14:57] LABS: BUN/Creatinine Ratio 20 (6-26); Blood Urea Nitrogen 14 mg/dL (6-20); Calcium 9.5 mg/dL (8.6-10.3); Carbon Dioxide 28 mEq/L (23-29); Chloride 100 mEq/L (98-107); Glucose 81 mg/dL (70-105); Magnesium 1.8 mg/dL (1.6-2.6); Osmolality,Calculated 282 (280-300); Potassium 4.2 mEq/L (3.5-5.1); Sodium 136 mEq/L (136-145); eGFR For African Americans > 60 (> 60); eGFR For Non-African Americans > 60 (> 60)
[2021-05-30] MEDS: amLODIPine 5 MG TABLET PO SCH (20:58)
[2021-05-30] MEDS: Haloperidol Lactate 5 MG/ML VIAL IM PRN (21:27)
[2021-05-31] MEDS: hydrOXYzine pamoate 25 MG CAPSULE PO PRN ×3 (05:45→20:37)
[2021-05-31] MEDS: Ibuprofen 400 MG TABLET PO PRN ×3 (05:45→20:36)
[2021-05-31] MEDS: Gabapentin 300 MG CAPSULE PO SCH ×3 (08:34→20:24)
[2021-05-31] MEDS: Metoprolol XL (24 HR) Succ 25 MG TAB.ER.24H PO SCH (08:34)
[2021-05-31] MEDS: Multivit/Ca/Min/Fe/FA 1 TAB TABLET PO SCH (08:34)
[2021-05-31] MEDS: clonazePAM 1 MG TABLET PO SCH ×2 (08:34→14:52)
[2021-05-31] MEDS: Nicotine 14 MG PATCH.TD24 TD SCH (08:36)
[2021-05-31] MEDS: OXcarbazepine 150 MG TABLET PO SCH ×3 (08:36→20:24)
[2021-05-31] MEDS: polyethylene glycoL 3350 17 GM POWD.PACK PO SCH (08:39)
[2021-05-31 08:46] LABS: BUN/Creatinine Ratio 20 (6-26); Blood Urea Nitrogen 16 mg/dL (6-20); Carbon Dioxide 29 mEq/L (23-29); Chloride 101 mEq/L (98-107); Glucose 99 mg/dL (70-105); Magnesium 1.8 mg/dL (1.6-2.6); Osmolality,Calculated 285 (280-300); Potassium 4.5 mEq/L (3.5-5.1); Sodium 137 mEq/L (136-145); eGFR For African Americans > 60 (> 60); eGFR For Non-African Americans > 60 (> 60)
[2021-05-31] MEDS: Haloperidol Lactate 5 MG/ML VIAL IM PRN (08:46)
[2021-05-31 10:54] LABS: Calcium 9.2 mg/dL (8.6-10.3)
[2021-05-31] MEDS: QUEtiapine Fumarate 300 MG TABLET PO SCH ×2 (14:52→20:24)
[2021-05-31] MEDS ORDERED: Acetaminophen 325 MG TABLET PO PRN (16:28)
[2021-05-31 20:08] VITALS: PULSE 85
[2021-05-31] MEDS: amLODIPine 5 MG TABLET PO SCH (20:24)
[2021-06-01] MEDS: Nicotine 14 MG PATCH.TD24 TD SCH (08:19)
[2021-06-01] MEDS: Multivit/Ca/Min/Fe/FA 1 TAB TABLET PO SCH (08:20)
[2021-06-01] MEDS: Gabapentin 300 MG CAPSULE PO SCH (08:21)
[2021-06-01] MEDS: Metoprolol XL (24 HR) Succ 25 MG TAB.ER.24H PO SCH (08:21)
[2021-06-01] MEDS: Ibuprofen 400 MG TABLET PO PRN (08:22)
[2021-06-01] MEDS: OXcarbazepine 150 MG TABLET PO SCH (08:22)
[2021-06-01] MEDS: hydrOXYzine pamoate 25 MG CAPSULE PO PRN ×2 (08:22→12:55)
[2021-06-01] MEDS: clonazePAM 1 MG TABLET PO SCH (08:23)
[2021-06-01] MEDS: polyethylene glycoL 3350 17 GM POWD.PACK PO SCH (08:40)
[2021-06-01 09:47] VITALS: BP 130/89; TEMP 97.8; O2SAT 98
== END 2021-06-01 13:15 | disposition home or self-care (01) | DRG 885 ==
LOC: 1ANU 20:53 → EMEROOARM 20:53 → 1ANU 05-06 09:36
PROVIDERS: ADMIT Psychiatry & Neurology Psychiatry; ATTEND Psychiatry & Neurology Psychiatry